=== PATIENT | male | born 1990 | race Caucasian/White ===

== ENCOUNTER 2024-07-11 20:15 | Inpatient (IN) | payer OTHER ==
[2024-07-11 21:33] VITALS: BMI 22.4
[2024-07-11] MEDS ORDERED: MAG HYDROX/AL HYDROX/SIMETH 30 ML UNIT-DOSE CUP PO PRN (22:35)
[2024-07-11] MEDS ORDERED: POLYETHYLENE GLYCOL (HEALTHYLAX) 3350 17 GM PACKET PO PRN (22:35)
[2024-07-11] MEDS ORDERED: BENZONATATE 200 MG CAPSULE PO PRN (22:35)
[2024-07-11] MEDS ORDERED: NALOXONE (NARCAN) HCL 4 MG/0.1 ML SPRAY NS PRN (22:35)
[2024-07-11] MEDS ORDERED: ACETAMINOPHEN 325 MG TABLET (FP) PO PRN (22:35)
[2024-07-11] MEDS ORDERED: guaiFENesin 600 MG TABLET.ER (FP) PO PRN (22:35)
[2024-07-11] MEDS ORDERED: IBUPROFEN 600 MG TABLET (FP) PO PRN (22:35)
[2024-07-11] MEDS ORDERED: MAGNESIUM HYDROX 2400MG/30ML ORAL SUSPENSION 30 ML CUP PO PRN (22:35)
[2024-07-11] MEDS ORDERED: BENZOCAINE/MENTHOL (CHLORASEPTIC ) LOZENGE MM PRN (22:35)
[2024-07-11] MEDS ORDERED: IBUPROFEN 400 MG TABLET (FP) PO PRN (22:35)
[2024-07-12] MEDS: hydrOXYzine PAMOATE 25 MG CAPSULE (FP) PO PRN (00:57)
[2024-07-12] MEDS: TUBERCULIN PPD 5 TU/0.1ML SYRINGE (IN PATIENT USE ONLY) ID ONE (00:59)
[2024-07-12] MEDS: MELATONIN 5 MG TABLETS PO SCH (01:02)
[2024-07-12] MEDS: GABAPENTIN 300 MG CAPSULE PO SCH (10:21)
[2024-07-12] MEDS: PRENATAL VITAMINS W/ FOLIC ACID TABLET (FP) PO SCH (10:21)
[2024-07-12 10:59] LABS: PH,URINE 6.5 (5.0-8.0); URINE APPEARANCE CLEAR; URINE BILIRUBIN NEGATIVE (NEGATIVE); URINE COLOR YELLOW; URINE GLUCOSE (UA) NEGATIVE (NEGATIVE); URINE KETONE NEGATIVE (NEGATIVE); URINE LEUK ESTERASE NEGATIVE (NEGATIVE); URINE NITRITE NEGATIVE (NEGATIVE); URINE PROTEIN NEGATIVE (NEGATIVE)
[2024-07-12 11:01] LABS: HEMOGLOBIN 15.2 g/dL (13.7-17.5); MCHC 33.8 g/dl (32.3-36.5); MEAN CELL VOLUME 87.7 fl (79.0-92.2); MEAN PLT VOLUME 9.5 fl (9.4-12.4); PLATELET COUNT 296 x10^3/uL (163-337); RDW 12.8 % (12.0-15.6)
[2024-07-12 11:17] LABS: CHLORIDE 101 mmol/L (98-107); SODIUM 136 mmol/L (136-145)
[2024-07-12 12:02] LABS: ANION GAP 4 mmol/L (4-13); BLOOD UREA NITROGEN 14.8 mg/dL (7-18); CO2 31 mmol/L (21-32); GLUCOSE,RANDOM 89 mg/dL (74-106)
[2024-07-12 12:03] LABS: CALCIUM 9.1 mg/dL (8.5-10.1)
[2024-07-12 12:05] LABS: ALBUMIN 3.6 g/dl (3.4-5.0); SGOT/AST 19 U/L (15-37)
[2024-07-12 12:06] LABS: CREATININE 0.8 mg/dL (0.55-1.3); SGPT/ALT 27 U/L (13-61)
[2024-07-12 12:09] LABS: ALK PHOS 86 U/L (45-117); BILIRUBIN,TOTAL 1.6 mg/dL (0.2-1); TOT PROT 7.8 g/dl (6.4-8.2)
[2024-07-12] MEDS: THIAMINE 100 MG TABLET PO SCH (21:22)
[2024-07-13] MEDS: LOPERAMIDE HCL 2 MG CAPSULE PO PRN (08:37)
[2024-07-13] MEDS ORDERED: SERTRALINE HCL 50 MG TABLET (FP) PO SCH ×3 (10:00)
[2024-07-13] MEDS: SERTRALINE HCL 50 MG TABLET (FP) PO SCH (10:34)
[2024-07-13] MEDS: BICTEGRAV/EMTRICIT/TENOFOV (BIKTARVY) 50-200-25 MG TABLET PO SCH (10:34)
[2024-07-13] MEDS: DIPHENOXYLATE 2.5/ATROPINE.025 1 COMBO TABLET PO ONE (14:11)
[2024-07-13] MEDS ORDERED: DICYCLOMINE HCL 10 MG CAPSULE PO PRN (15:15)
[2024-07-13] MEDS ORDERED: DIPHENOXYLATE 2.5/ATROPINE.025 1 COMBO TABLET PO PRN (18:00)
[2024-07-13] MEDS: DOXYCYCLINE HYCLATE 100 MG CAPSULE PO SCH (18:22)
[2024-07-14 05:57] VITALS: RESP 16; TEMP 97.1
[2024-07-15 06:34] VITALS: BP 119/70; PULSE 65
[2024-07-15] MEDS: DOXYCYCLINE HYCLATE 100 MG TABLET PO SCH (09:41)
== END 2024-07-15 09:54 | disposition home or self-care (01) | DRG 772 ==
LOC: YASAS 20:15 → Y3W 23:37
PROVIDERS: ADMIT Psychiatry & Neurology Pain Medicine; ATTEND Psychiatry & Neurology Pain Medicine
PROC: HZ42ZZZ Group Counseling for Substance Abuse Treatment, Cognitive-Behavioral (ICD-10-PCS; principal; 2024-07-11)
DX: F15.20 Other stimulant dependence, uncomplicated (principal); F11.10 Opioid abuse, uncomplicated; F32.A Depression, unspecified; F41.9 Anxiety disorder, unspecified; Z21 Asymptomatic human immunodeficiency virus [HIV] infection status; A53.9 Syphilis, unspecified; G47.8 Other sleep disorders; R56.9 Unspecified convulsions; R19.7 Diarrhea, unspecified; Z79.899 Other long term (current) drug therapy
CPT/HCPCS: 36415; 80053; 80307; 81003; 85027; 86593; 86780; 87045; 87046; 87186; 87811; 93005; 93010